=== PATIENT | female | born 1945 | race African-American/Black ===

== ENCOUNTER 2020-06-07 15:55 | Emergency (ER) | payer MEDICARE ==
[2020-06-07 16:32] LABS: #Lymphocytes 1.5 thou/uL (1.20-3.40); #Monocytes 0.3 thou/uL (0.11-0.59); #Neutrophils 2.8 thou/uL (1.40-6.50); %Basophils 0.1 % (0.0-1.0); %Eosinophils 0.4 % (0.0-10.0); %Lymphocytes 32.1 % (21.0-51.0); %Monocytes 6.2 % (0.0-10.0); %Neutrophils 61.2 % (42.0-75.0); Hemoglobin 9.4 g/dL (12.0-16.0); Mean Corpuscular HGB CONC 31.6 g/dL (32.0-36.0); Mean Corpuscular Hemoglobin 28.4 pg (27.0-31.0); Mean Corpuscular Volume 89.7 fL (78.0-98.0); Mean Platelet Volume 8.2 fL (7.4-10.4); Platelet Count 237 thou/uL (130-400); RBC Distribution Width 14.5 % (11.5-14.5); White Blood Cell (WBC) Count 4.6 thou/uL (4.8-10.8)
[2020-06-07 16:57] LABS: ALT (SGPT) 8 U/L (8-55); AST (SGOT) 27 U/L (5-34); Albumin 3.6 g/dL (3.4-4.8); Alkaline Phosphatase 44 U/L (40-110); Anion Gap 18 mmol/L (10-20); BUN (Urea Nitrogen) 35 mg/dL (9.8-20.1); Bilirubin, Total 0.5 mg/dL (0.2-1.2); Calc. Creatinine Clearance 0 mL/min (70-130); Calcium 8.4 mg/dL (7.8-10.44); Carbon Dioxide 24 mmol/L (23-31); Chloride 103 mmol/L (98-107); Globulin 3.5 g/dL (2.4-3.5); Glucose 110 mg/dL (83-110); Potassium 4.6 mmol/L (3.5-5.1); Protein, Total 7.1 g/dL (6.0-8.3); Sodium 140 mmol/L (136-145)
[2020-06-07] MEDS ORDERED: Cefepime 2 GM in Sodium Chloride 0.9% 100 ML IVPB SCH (17:45)
[2020-06-07] MEDS ORDERED: Vancomycin 1 GM in Premix Bag 1 BAG IVPB SCH (17:45)
[2020-06-07] MEDS ORDERED: Cefepime 2 GM VIAL ONE (18:12)
[2020-06-07 18:19] LABS: Bacteria/HPF None Seen HPF (None Seen); Bilirubin Negative (Negative); Blood, Urine Negative (Negative); Clarity Clear (Clear); Glucose, Urine (Dipstick) Normal (Negative); Ketone, Urine Negative (Negative); Leukocyte Negative Leu/uL (Negative); Nitrite Negative (Negative); Protein, Urine (Dipstick) 30 mg/dL (Neg-Trace); RBC/HPF 0-3 HPF (0-3); Specific Gravity, Urine 1.015 (1.002-1.036); Squamous Epithelial 0-3 HPF (0-3); Urobilinogen Normal mg/dL (Less than 2); WBC/HPF 0-3 HPF (0-3); pH, Urine 5.5 (5.0-9.0)
--- NOTE | 2020-06-07 18:21 | RAD ---
PORTABLE CHEST: History: Fever, dyspnea Comparison: 08-16-17 FINDINGS: Heart size is within normal limits. Lungs show some chronic change. Only questionable area of infiltr ative change would be in the right upper lobe where ground glass infiltrative changes would be diffic ult to exclude, but this may just be more chronic in nature. Technique difference between the previou s film is fairly significant. I would favor that this probably chronic in nature. IMPRESSION: Chronic lung changes as discussed above. POS: OFF
[2020-06-07 18:36] LABS: SARS-CoV-2 NAA Rapid Test DETECTED (NotDetected)
--- NOTE | 2020-06-26 19:13 | EKG ---
Test Reason : Blood Pressure : / mmHG Vent. Rate : 086 BPM Atrial Rate : 086 BPM P-R Int : 108 ms QRS Dur : 074 ms QT Int : 340 ms P-R-T Axes : 000 032 074 degrees QTc Int : 406 ms Normal sinus rhythm Normal ECG Confirmed by LORENZA PICHARDO DO ([id number]), electronic news gathering editor MALENA HAILE ([id number]) on 06/26/2020 7:12:32 PM Referred By: Confirmed By:LORENZA PICHARDO DO
== END 2020-06-07 19:45 | disposition home or self-care (01) ==
LOC: ERS 15:55
DX: U07.1 COVID-19 (principal); E11.9 Type 2 diabetes mellitus without complications; I10 Essential (primary) hypertension; F17.210 Nicotine dependence, cigarettes, uncomplicated; Z79.84 Long term (current) use of oral hypoglycemic drugs; Z79.899 Other long term (current) drug therapy
CPT/HCPCS: 0240U; 71045; 80053; 82550; 82962; 83605; 84484; 85025; 87040; 87086; 93005; 94760; 36415; 36416; 51701; 81003; 81015; 96365; J0692

== ENCOUNTER 2020-07-15 20:37 | Emergency (ER) | payer MEDICARE ==
--- NOTE | 2020-07-15 21:52 | RAD ---
Chest AP view INDICATION: History of fall COMPARISON: June 07, 2020 FINDINGS: Lungs: Interstitial fibrotic change and mild hyperinflation is stable. No contusion is evident. Cardiac silhouette: The cardiomediastinal silhouette appears within normal limits. Pulmonary vasculature: Normal Pleural spaces: No pleural effusion or pneumothorax is demonstrated. Upper abdomen: No abnormality seen. Osseous structures: There is diffuse osteopenia. No definite acute osseous abnormality is evident. Additional findings: None. IMPRESSION: No acute cardiopulmonary abnormality.
--- NOTE | 2020-07-15 21:53 | RAD ---
AP view of the pelvis INDICATION: Fall COMPARISON: None. FINDINGS: Bones: There is diffuse osteopenia. No displaced fracture is evident. Hips: Mild degenerative changes seen involving both hip joints. SI joints and symphysis pubis: Mild degenerative change. Intrapelvic contents: There is a calcified fibroid within the lower central pelvis. There are moderate vascular calcifications seen involving the visualized vasculature. IMPRESSION: No acute osseous abnormality.
[2020-07-15 22:09] LABS: Hemoglobin 9.7 g/dL (12.0-16.0); Mean Corpuscular HGB CONC 32.7 g/dL (32.0-36.0); Mean Corpuscular Hemoglobin 30.3 pg (27.0-31.0); Mean Corpuscular Volume 92.7 fL (78.0-98.0); Mean Platelet Volume 7.1 fL (7.4-10.4); Platelet Count 273 thou/uL (130-400); RBC Distribution Width 13.6 % (11.5-14.5); White Blood Cell (WBC) Count 6.1 thou/uL (4.8-10.8)
--- NOTE | 2020-07-15 22:10 | CT ---
CT Brain WO Con: 07/15/2020 9:55 PM CLINICAL HISTORY: Fall. IMAGING TECHNIQUE: Multiple CT images were obtained of the brain without IV contrast. COMPARISON: CT of the head dated August 16, 2017 FINDINGS: BRAIN: Evidence of acute infarct: None. 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 Evidence of intracranial hemorrhage: None. Evidence of brain volume loss:There is moderate generalized cerebral and cerebellar atrophy. Evidence of midline shift: Third ventricle and septum pellucidum are midline. Ventricles: Normal. No hydrocephalus. SKULL: Intact. VISUALIZED PARANASAL SINUSES: Clear. MASTOID AIR CELLS: Clear. EXTRACRANIAL SOFT TISSUES: Normal. IMPRESSION: No acute intracranial abnormality.
--- NOTE | 2020-07-15 22:12 | CT ---
CT Cervical Spine WO Con Indication: Fall with cervical injury COMPARISON: None. FINDINGS: Spinal alignment: No acute malalignment. Craniocervical junction: Within normal limits. Fracture: None. Vertebral body heights: Maintained. Prevertebral soft tissues:Normal appearing. Cervical spine degenerative change: Moderate multilevel cervical spondylosis. Lung apices: Severe emphysema IMPRESSION: No acute osseous abnormality.
[2020-07-15 22:21] LABS: ALT (SGPT) 9 U/L (8-55); AST (SGOT) 16 U/L (5-34); Albumin 3.4 g/dL (3.4-4.8); Alkaline Phosphatase 65 U/L (40-110); Anion Gap 20 mmol/L (10-20); BUN (Urea Nitrogen) 26 mg/dL (9.8-20.1); Bilirubin, Total 0.3 mg/dL (0.2-1.2); Calc. Creatinine Clearance 0 mL/min (70-130); Calcium 7.6 mg/dL (7.8-10.44); Carbon Dioxide 22 mmol/L (23-31); Chloride 100 mmol/L (98-107); Globulin 2.7 g/dL (2.4-3.5); Glucose 114 mg/dL (83-110); Potassium 4.9 mmol/L (3.5-5.1); Protein, Total 6.1 g/dL (5.8-8.1); Sodium 137 mmol/L (136-145)
[2020-07-15 22:22] LABS: #Lymphocytes 0.9 thou/uL (1.20-3.40); #Monocytes 0.4 thou/uL (0.11-0.59); #Neutrophils 4.8 thou/uL (1.40-6.50); %Basophils 0.5 % (0.0-1.0); %Eosinophils 0.2 % (0.0-10.0); %Lymphocytes 14.9 % (21.0-51.0); %Monocytes 6.3 % (0.0-10.0); %Neutrophils 78.1 % (42.0-75.0)
== END 2020-07-15 23:14 | disposition home or self-care (01) ==
LOC: ERS 20:37
DX: S01.81XA Laceration without foreign body of other part of head, initial encounter (principal); D64.9 Anemia, unspecified; I12.9 Hypertensive chronic kidney disease with stage 1 through stage 4 chronic kidney disease, or unspecified chronic kidney disease; E11.22 Type 2 diabetes mellitus with diabetic chronic kidney disease; N18.9 Chronic kidney disease, unspecified; F17.210 Nicotine dependence, cigarettes, uncomplicated; Z79.899 Other long term (current) drug therapy; W18.30XA Fall on same level, unspecified, initial encounter
CPT/HCPCS: 36415; 70450; 71045; 72125; 72170; 80053; 84484; 85025; 93005

== ENCOUNTER 2020-09-24 09:08 | Emergency (ER) | payer MEDICARE ==
[2020-09-24 11:17] LABS: #Basophils 0.1 thou/uL (0.0-0.2); #Monocytes 0.4 thou/uL (0.11-0.59); #Neutrophils 3.1 thou/uL (1.40-6.50); %Basophils 1.1 % (0.0-1.0); %Eosinophils 0.2 % (0.0-10.0); %Lymphocytes 35.5 % (21.0-51.0); %Monocytes 7.9 % (0.0-10.0); %Neutrophils 55.2 % (42.0-75.0); Hemoglobin 9.8 g/dL (12.0-16.0); Mean Corpuscular HGB CONC 30.2 g/dL (32.0-36.0); Mean Corpuscular Hemoglobin 28.8 pg (27.0-31.0); Mean Corpuscular Volume 95.3 fL (78.0-98.0); Mean Platelet Volume 7.3 fL (7.4-10.4); Platelet Count 304 thou/uL (130-400); RBC Distribution Width 12.8 % (11.5-14.5); Red Blood Cell (RBC) Count 3.41 mill/uL (4.20-5.40); White Blood Cell (WBC) Count 5.6 thou/uL (4.8-10.8)
[2020-09-24 11:36] LABS: ALT (SGPT) 8 U/L (8-55); AST (SGOT) 15 U/L (5-34); Albumin 3.5 g/dL (3.4-4.8); Alkaline Phosphatase 64 U/L (40-110); Anion Gap 13 mmol/L (10-20); BUN (Urea Nitrogen) 15 mg/dL (9.8-20.1); Bilirubin, Total 0.2 mg/dL (0.2-1.2); Calc. Creatinine Clearance 0 mL/min (70-130); Calcium 8.9 mg/dL (7.8-10.44); Carbon Dioxide 25 mmol/L (23-31); Chloride 103 mmol/L (98-107); Globulin 2.8 g/dL (2.4-3.5); Glucose 96 mg/dL (83-110); Lipase 20 U/L (8-78); Potassium 4.5 mmol/L (3.5-5.1); Protein, Total 6.3 g/dL (5.8-8.1); Sodium 136 mmol/L (136-145)
[2020-09-24] MEDS ORDERED: Iopamidol-370 76% 500 ML 1 ML ONE (11:52)
[2020-09-24] MEDS ORDERED: Fentanyl 100 MCG/2 ML VIAL ONE (15:34)
== END 2020-09-24 16:32 | disposition home or self-care (01) ==
LOC: ERS 09:08
DX: K52.89 Other specified noninfective gastroenteritis and colitis (principal); J98.4 Other disorders of lung; I10 Essential (primary) hypertension; F17.210 Nicotine dependence, cigarettes, uncomplicated; Z79.899 Other long term (current) drug therapy
CPT/HCPCS: 36415; 74177; 80053; 83605; 83690; 84484; 85025; 93005; 96374; J3010; Q9967

== ENCOUNTER 2020-10-07 09:44 | Inpatient (IN) | payer MEDICARE ==
[2020-10-07 10:30] LABS: #Lymphocytes 1.4 thou/uL (1.20-3.40); #Monocytes 0.5 thou/uL (0.11-0.59); #Neutrophils 3.6 thou/uL (1.40-6.50); %Basophils 0.2 % (0.0-1.0); %Eosinophils 0.2 % (0.0-10.0); %Lymphocytes 25.5 % (21.0-51.0); %Monocytes 9.3 % (0.0-10.0); %Neutrophils 64.9 % (42.0-75.0); Mean Corpuscular HGB CONC 31.6 g/dL (32.0-36.0); Mean Corpuscular Hemoglobin 29.9 pg (27.0-31.0); Mean Corpuscular Volume 94.5 fL (78.0-98.0); Mean Platelet Volume 7.4 fL (7.4-10.4); Platelet Count 280 thou/uL (130-400); RBC Distribution Width 12.4 % (11.5-14.5); Red Blood Cell (RBC) Count 3.36 mill/uL (4.20-5.40); White Blood Cell (WBC) Count 5.6 thou/uL (4.8-10.8)
[2020-10-07 10:43] LABS: ALT (SGPT) Less than 7 U/L (8-55); AST (SGOT) 12 U/L (5-34); Albumin 3.2 g/dL (3.4-4.8); Alkaline Phosphatase 61 U/L (40-110); Anion Gap 12 mmol/L (10-20); BUN (Urea Nitrogen) 11 mg/dL (9.8-20.1); Bilirubin, Total 0.4 mg/dL (0.2-1.2); Calc. Creatinine Clearance 0 mL/min (70-130); Calcium 8.6 mg/dL (7.8-10.44); Carbon Dioxide 28 mmol/L (23-31); Chloride 102 mmol/L (98-107); Globulin 2.6 g/dL (2.4-3.5); Glucose 115 mg/dL (83-110); Lipase 24 U/L (8-78); Potassium 4.2 mmol/L (3.5-5.1); Protein, Total 5.8 g/dL (5.8-8.1); Sodium 138 mmol/L (136-145)
[2020-10-07] MEDS ORDERED: Pantoprazole 40 MG VIAL ONE (12:32)
[2020-10-07] MEDS ORDERED: Ondansetron PF 4 MG/2 ML Vial ONE (12:32)
[2020-10-07] MEDS ORDERED: hydrALAZINE 20 MG/ML VIAL ONE (14:47)
[2020-10-07] MEDS ORDERED: HYDROcodone/Acetaminophen 5/325 mg Tablet PO PRN (14:59)
[2020-10-07] MEDS ORDERED: Acetaminophen 650 MG Suppository PR PRN (14:59)
[2020-10-07] MEDS ORDERED: Acetaminophen 325 MG TAB PO PRN (14:59)
[2020-10-07] MEDS ORDERED: Ondansetron PF 4 MG/2 ML Vial IVP PRN (14:59)
[2020-10-07] MEDS ORDERED: Amlodipine 5 MG TAB PO SCH (16:00)
[2020-10-07 16:40] VITALS: BMI 16.5
[2020-10-07] MEDS: Heparin 5,000 UNITS/ML VIAL SC SCH (20:35)
[2020-10-07] MEDS: hydrALAZINE 20 MG/ML VIAL SLOW IVP PRN (22:15)
[2020-10-07] MEDS: Dextrose 5% in Water 1,000 ML IV SCH (22:15)
[2020-10-08] MEDS: hydrALAZINE 20 MG/ML VIAL SLOW IVP PRN (05:59)
[2020-10-08 06:56] LABS: ALT (SGPT) Less than 7 U/L (8-55); AST (SGOT) 9 U/L (5-34); Albumin 2.6 g/dL (3.4-4.8); Alkaline Phosphatase 48 U/L (40-110); Anion Gap 9 mmol/L (10-20); BUN (Urea Nitrogen) 13 mg/dL (9.8-20.1); Bilirubin, Total 0.4 mg/dL (0.2-1.2); Calc. Creatinine Clearance 27 mL/min (70-130); Calcium 7.9 mg/dL (7.8-10.44); Carbon Dioxide 28 mmol/L (23-31); Globulin 2.2 g/dL (2.4-3.5); Glucose 90 mg/dL (83-110); Protein, Total 4.8 g/dL (5.8-8.1)
[2020-10-08 07:01] LABS: Chloride 103 mmol/L (98-107); Potassium 4.3 mmol/L (3.5-5.1); Sodium 136 mmol/L (136-145)
[2020-10-08] MEDS: Amlodipine 5 MG TAB PO SCH (09:43)
[2020-10-08] MEDS: Heparin 5,000 UNITS/ML VIAL SC SCH ×2 (10:37→20:14)
[2020-10-08] MEDS: Dextrose 5% in Water 1,000 ML IV SCH (10:47)
[2020-10-08] MEDS ORDERED: Amlodipine 10 MG TAB PO SCH (20:00)
[2020-10-08] MEDS: Oxybutynin 5 MG TAB PO SCH (20:15)
[2020-10-08] MEDS: Docusate 100 MG CAP PO SCH (20:15)
[2020-10-08] MEDS ORDERED: Mirtazapine 15 MG Soltab PO SCH (21:00)
[2020-10-09] MEDS ORDERED: Folic Acid 1 MG TAB PO SCH (09:00)
[2020-10-09] MEDS: Docusate 100 MG CAP PO SCH (09:11)
[2020-10-09] MEDS: Amlodipine 5 MG TAB PO SCH (09:11)
[2020-10-09] MEDS: Heparin 5,000 UNITS/ML VIAL SC SCH (09:12)
[2020-10-09] MEDS: Oxybutynin 5 MG TAB PO SCH (09:12)
[2020-10-09 14:43] VITALS: BP 158/74; TEMP 97.7
== END 2020-10-09 14:38 | disposition home or self-care (01) | DRG 389 ==
LOC: ERS 09:44 → T4-B 14:09 → OBSVTOIN 10-08 18:10
PROVIDERS: ADMIT Hospitalist; ATTEND Internal Medicine
DX: K56.600 Partial intestinal obstruction, unspecified as to cause (principal); N17.9 Acute kidney failure, unspecified; E44.0 Moderate protein-calorie malnutrition; R64 Cachexia; Z68.1 Body mass index [BMI] 19.9 or less, adult; F03.90 Unspecified dementia, unspecified severity, without behavioral disturbance, psychotic disturbance, mood disturbance, and anxiety; D50.9 Iron deficiency anemia, unspecified; E11.22 Type 2 diabetes mellitus with diabetic chronic kidney disease; I12.9 Hypertensive chronic kidney disease with stage 1 through stage 4 chronic kidney disease, or unspecified chronic kidney disease; N18.30 Chronic kidney disease, stage 3 unspecified; I16.0 Hypertensive urgency; F17.210 Nicotine dependence, cigarettes, uncomplicated; Z86.16 Personal history of COVID-19
CPT/HCPCS: 36415; 36416; 74018; 74177; 80053; 83690; 84484; 85025; 93005; 96372; 96374; 96375; 96376; C9113; G0378; J0360; J1644; J2405

== ENCOUNTER 2020-12-20 17:59 | Inpatient (IN) | payer MEDICARE ==
[~2020-12-20 17:59] MED LIST: Iopamidol-370 76% 500 ML 1 ML ONE
[2020-12-20 21:52] LABS: #Eosinphils 0.1 thou/uL (0.0-0.7); #Monocytes 0.6 thou/uL (0.11-0.59); #Neutrophils 3.6 thou/uL (1.40-6.50); %Basophils 0.2 % (0.0-1.0); %Eosinophils 1.8 % (0.0-10.0); %Monocytes 9.7 % (0.0-10.0); %Neutrophils 56.3 % (42.0-75.0); Hemoglobin 5.3 g/dL (12.0-16.0); Mean Corpuscular HGB CONC 31.2 g/dL (32.0-36.0); Mean Corpuscular Hemoglobin 26.1 pg (27.0-31.0); Mean Corpuscular Volume 83.7 fL (78.0-98.0); Mean Platelet Volume 6.8 fL (7.4-10.4); Platelet Count 384 thou/uL (130-400); RBC Distribution Width 15.3 % (11.5-14.5); Red Blood Cell (RBC) Count 2.03 mill/uL (4.20-5.40); White Blood Cell (WBC) Count 6.4 thou/uL (4.8-10.8)
[2020-12-20 21:58] LABS: ALT (SGPT) Less than 7 U/L (8-55); AST (SGOT) 11 U/L (5-34); Albumin 3.8 g/dL (3.4-4.8); Alkaline Phosphatase 57 U/L (40-110); Anion Gap 12 mmol/L (10-20); BUN (Urea Nitrogen) 22 mg/dL (9.8-20.1); Bilirubin, Total Less than 0.2 mg/dL (0.2-1.2); Calc. Creatinine Clearance 0 mL/min (70-130); Calcium 8.8 mg/dL (7.8-10.44); Carbon Dioxide 24 mmol/L (23-31); Chloride 107 mmol/L (98-107); Globulin 2.8 g/dL (2.4-3.5); Glucose 108 mg/dL (83-110); Lipase 82 U/L (8-78); Protein, Total 6.6 g/dL (5.8-8.1); Sodium 138 mmol/L (136-145)
[2020-12-20] MEDS ORDERED: Piperacillin/Tazobactam 3.375 GM VIAL ONE (22:49)
[2020-12-20] MEDS ORDERED: Pantoprazole 80 MG, Admixture Fee 1 EACH in Sodium Chloride 0.9% 100 ML IVPB SCH (23:00)
[2020-12-20 23:13] LABS: Bilirubin Negative (Negative); Blood, Urine Negative (Negative); Clarity Clear (Clear); Glucose, Urine (Dipstick) Normal (Negative); Ketone, Urine Negative (Negative); Leukocyte Negative Leu/uL (Negative); Nitrite Negative (Negative); Protein, Urine (Dipstick) Negative (Neg-Trace); Specific Gravity, Urine 1.014 (1.002-1.036); Urobilinogen Normal mg/dL (Less than 2)
[2020-12-21] MEDS ORDERED: Sodium Chloride 0.9% 1,000 ML IV SCH (02:15)
[2020-12-21] MEDS ORDERED: Ondansetron PF 4 MG/2 ML Vial IVP PRN (02:15)
[2020-12-21] MEDS ORDERED: Ondansetron ODT 4 MG TAB SL PRN (02:15)
[2020-12-21 02:18] VITALS: BMI 19.1
[2020-12-21] MEDS ORDERED: Acetaminophen 650 MG Suppository PR PRN (02:46)
[2020-12-21] MEDS: metroNIDAZOLE 500 MG in Premix Bag 1 BAG IVPB SCH ×3 (03:11→20:56)
[2020-12-21 04:39] LABS: #Eosinphils 0.1 thou/uL (0.0-0.7); #Lymphocytes 1.8 thou/uL (1.20-3.40); #Monocytes 0.7 thou/uL (0.11-0.59); #Neutrophils 4.1 thou/uL (1.40-6.50); %Basophils 0.6 % (0.0-1.0); %Eosinophils 0.9 % (0.0-10.0); %Lymphocytes 27.2 % (21.0-51.0); %Monocytes 9.9 % (0.0-10.0); %Neutrophils 61.4 % (42.0-75.0); Hemoglobin 6.7 g/dL (12.0-16.0); Mean Corpuscular HGB CONC 32.7 g/dL (32.0-36.0); Mean Corpuscular Hemoglobin 28.6 pg (27.0-31.0); Mean Corpuscular Volume 87.5 fL (78.0-98.0); Mean Platelet Volume 6.6 fL (7.4-10.4); Platelet Count 332 thou/uL (130-400); RBC Distribution Width 15.4 % (11.5-14.5); Red Blood Cell (RBC) Count 2.34 mill/uL (4.20-5.40); White Blood Cell (WBC) Count 6.6 thou/uL (4.8-10.8)
[2020-12-21 04:50] LABS: Anion Gap 12 mmol/L (10-20); BUN (Urea Nitrogen) 21 mg/dL (9.8-20.1); Calc. Creatinine Clearance 25 mL/min (70-130); Calcium 8.7 mg/dL (7.8-10.44); Carbon Dioxide 21 mmol/L (23-31); Chloride 107 mmol/L (98-107); Glucose 95 mg/dL (83-110); Potassium 4.6 mmol/L (3.5-5.1); Sodium 135 mmol/L (136-145)
[2020-12-21] MEDS ORDERED: Piperacillin/Tazobactam 3.375 GM in Sodium Chloride 0.9% 100 ML IVPB SCH (06:00)
[2020-12-21 06:18] LABS: SARS-CoV-2 NAA Rapid Test Not Detected (NotDetected)
[2020-12-21] MEDS: Pantoprazole 40 MG VIAL IVP SCH ×2 (08:31→20:57)
[2020-12-21] MEDS: Oxybutynin 5 MG TAB PO SCH ×2 (08:40→20:57)
[2020-12-21] MEDS: Folic Acid 1 MG TAB PO SCH (08:40)
[2020-12-21 09:47] LABS: Hemoglobin 8.5 g/dL (12.0-16.0)
[2020-12-21] MEDS ORDERED: Dextrose 50% Abboject 50 ML SYRINGE SLOW IVP PRN (13:13)
[2020-12-21] MEDS ORDERED: HumaLOG 300 UNITS/3 ML VIAL SC PRN (13:13)
[2020-12-21] MEDS ORDERED: Dextrose 5% in Water 1,000 ML IV PRN (13:13)
[2020-12-21] MEDS: Sodium Chloride 0.45% 1,000 ML IV SCH (14:55)
[2020-12-21 15:08] LABS: Hemoglobin 9.4 g/dL (12.0-16.0)
[2020-12-21] MEDS: Donepezil HCl 5 MG TAB PO SCH (20:56)
[2020-12-21] MEDS: Mirtazapine 15 MG Soltab PO SCH (21:01)
[2020-12-21 21:38] LABS: Hemoglobin 8.1 g/dL (12.0-16.0)
[2020-12-22] MEDS: metroNIDAZOLE 500 MG in Premix Bag 1 BAG IVPB SCH ×2 (03:52→12:13)
[2020-12-22 06:36] LABS: Anion Gap 10 mmol/L (10-20); BUN (Urea Nitrogen) 12 mg/dL (9.8-20.1); Calc. Creatinine Clearance 24 mL/min (70-130); Calcium 8.5 mg/dL (7.8-10.44); Carbon Dioxide 22 mmol/L (23-31); Chloride 107 mmol/L (98-107); Glucose 80 mg/dL (83-110); Potassium 4.4 mmol/L (3.5-5.1); Sodium 135 mmol/L (136-145)
[2020-12-22] MEDS: Folic Acid 1 MG TAB PO SCH (09:29)
[2020-12-22] MEDS: Pantoprazole 40 MG VIAL IVP SCH (09:29)
[2020-12-22] MEDS: Oxybutynin 5 MG TAB PO SCH ×2 (09:29→21:56)
[2020-12-22] MEDS: Sodium Chloride 0.45% 1,000 ML IV SCH (12:04)
[2020-12-22] MEDS: metroNIDAZOLE 500 MG TAB PO SCH ×2 (13:28→21:55)
[2020-12-22 17:14] LABS: Hemoglobin 8.1 g/dL (12.0-16.0)
[2020-12-22] MEDS: Acetaminophen 325 MG TAB PO PRN (17:32)
[2020-12-22] MEDS: Donepezil HCl 5 MG TAB PO SCH (21:55)
[2020-12-22] MEDS: Mirtazapine 15 MG Soltab PO SCH (21:55)
[2020-12-23] MEDS: metroNIDAZOLE 500 MG TAB PO SCH (07:55)
[2020-12-23] MEDS: Acetaminophen 325 MG TAB PO PRN (07:55)
[2020-12-23] MEDS: Oxybutynin 5 MG TAB PO SCH (07:56)
[2020-12-23] MEDS: Folic Acid 1 MG TAB PO SCH (07:57)
[2020-12-23 12:19] VITALS: BP 127/70; TEMP 97.2
== END 2020-12-23 12:37 | disposition home or self-care (01) | DRG 378 ==
LOC: ERS 17:59 → T4-B 12-21 00:10 → OBSVTOIN 12-21 07:27
PROVIDERS: ADMIT Student in an Organized Health Care Education/Training Program; ATTEND Internal Medicine
PROC: 30233N1 Transfusion of Nonautologous Red Blood Cells into Peripheral Vein, Percutaneous Approach (ICD-10-PCS; principal; 2020-12-21)
DX: K57.31 Diverticulosis of large intestine without perforation or abscess with bleeding (principal); D62 Acute posthemorrhagic anemia; N17.9 Acute kidney failure, unspecified; E11.22 Type 2 diabetes mellitus with diabetic chronic kidney disease; N18.9 Chronic kidney disease, unspecified; I12.9 Hypertensive chronic kidney disease with stage 1 through stage 4 chronic kidney disease, or unspecified chronic kidney disease; F03.90 Unspecified dementia, unspecified severity, without behavioral disturbance, psychotic disturbance, mood disturbance, and anxiety; Z20.822 Contact with and (suspected) exposure to COVID-19; Z79.899 Other long term (current) drug therapy; Z87.891 Personal history of nicotine dependence; Z93.1 Gastrostomy status; Z85.118 Personal history of other malignant neoplasm of bronchus and lung
CPT/HCPCS: 36415; 36416; 36430; 51701; 74177; 80048; 80053; 81003; 82274; 83690; 85014; 85018; 85025; 86850; 86900; 86901; 87086; 96365; 96367; 96375; C9113; G0378; J1956; J2543; J3490; P9016; Q9967; U0002; U0005

== ENCOUNTER 2021-03-05 14:15 | Emergency (ER) | payer OTHER, MEDICARE ==
[2021-03-05] MEDS ORDERED: Morphine 4 MG/ML VIAL ONE ×2 (14:55→16:05)
== END 2021-03-05 17:08 | disposition home or self-care (01) ==
LOC: ERS 14:15
DX: K94.09 Other complications of colostomy (principal); I10 Essential (primary) hypertension; E11.9 Type 2 diabetes mellitus without complications; F03.90 Unspecified dementia, unspecified severity, without behavioral disturbance, psychotic disturbance, mood disturbance, and anxiety; Z79.899 Other long term (current) drug therapy
CPT/HCPCS: 96374; 96376; J2270

== ENCOUNTER 2021-03-06 16:14 | Emergency (ER) | payer OTHER, MEDICARE | END 2021-03-06 17:21 | disposition home or self-care (01) | LOC: ERS 16:14 | DX: K94.03 Colostomy malfunction (principal); Z79.899 Other long term (current) drug therapy; E11.9 Type 2 diabetes mellitus without complications; I10 Essential (primary) hypertension | CPT/HCPCS: 99283 ==

== ENCOUNTER 2021-03-07 16:55 | Outpatient (CLI) | payer OTHER ==
[2021-03-08 00:59] LABS: SARS-CoV-2 PCR by NAA Not Detected (NotDetected)
== END 2021-03-07 16:56 | disposition home or self-care (01) ==
LOC: LABBT 16:55
DX: Z01.812 Encounter for preprocedural laboratory examination (principal); Z20.822 Contact with and (suspected) exposure to COVID-19
CPT/HCPCS: U0003; U0005

== ENCOUNTER 2021-03-09 09:32 | Inpatient (IN) | payer MEDICARE ==
[2021-03-08 17:48] VITALS: BMI 14.8
[2021-03-09] MEDS ORDERED: Midazolam HCl 2 mg/2 ml Vial ONE (10:33)
[2021-03-09] MEDS ORDERED: Ondansetron PF 4 MG/2 ML Vial ONE (10:44)
[2021-03-09] MEDS ORDERED: Succinylcholine 200 MG/10 ml SYRINGE FS ONE (10:44)
[2021-03-09] MEDS ORDERED: PROPOFOL 200 MG/20 ML VIAL ONE (10:44)
[2021-03-09] MEDS ORDERED: Esmolol 100 MG/10 ML VIAL ONE (10:44)
[2021-03-09] MEDS ORDERED: Lidocaine 1% PF 5 ML VIAL ONE (10:44)
[2021-03-09] MEDS ORDERED: PHENYLEPHRINE-NS 100 MCG/ML 10 ML SYRINGE ONE (10:44)
[2021-03-09] MEDS ORDERED: Dexamethasone 20 MG/5 ML VIAL ONE (10:44)
[2021-03-09] MEDS ORDERED: Fentanyl 100 MCG/2 ML VIAL ONE ×3 (10:55→13:36)
[2021-03-09] MEDS ORDERED: cefOXitin Sodium/Dextrose 2 GM/50 ML BAG ONE (11:49)
[2021-03-09] MEDS ORDERED: Dextrose 50% Abboject 50 ML SYRINGE SLOW IVP PRN (13:02)
[2021-03-09] MEDS ORDERED: Dextrose 5% in Water 1,000 ML IV PRN (13:02)
[2021-03-09] MEDS ORDERED: Morphine 4 MG/ML VIAL SLOW IVP PRN ×2 (13:02→13:06)
[2021-03-09] MEDS ORDERED: HYDROcodone/Acetaminophen 7.5/325 mg Tablet PO PRN (13:02)
[2021-03-09] MEDS ORDERED: Ondansetron PF 4 MG/2 ML Vial IVP PRN (13:02)
[2021-03-09] MEDS ORDERED: hydrALAZINE 20 MG/ML VIAL SLOW IVP PRN (13:02)
[2021-03-09] MEDS ORDERED: Sodium Chloride 0.9% 1,000 ML IV SCH (13:02)
[2021-03-09] MEDS ORDERED: Promethazine HCl 25 MG/ML VIAL IM PRN (13:02)
[2021-03-09] MEDS ORDERED: traMADol HCl 50 MG TAB PO PRN (13:02)
[2021-03-09 13:14] LABS: #Lymphocytes 2.9 thou/uL (1.20-3.40); #Monocytes 0.6 thou/uL (0.11-0.59); #Neutrophils 4.4 thou/uL (1.40-6.50); %Basophils 0.1 % (0.0-1.0); %Eosinophils 0.5 % (0.0-10.0); %Lymphocytes 36.7 % (21.0-51.0); %Monocytes 7.5 % (0.0-10.0); %Neutrophils 55.1 % (42.0-75.0); Hemoglobin 10.3 g/dL (12.0-16.0); Mean Corpuscular HGB CONC 32.2 g/dL (32.0-36.0); Mean Corpuscular Hemoglobin 26.3 pg (27.0-31.0); Mean Corpuscular Volume 81.9 fL (78.0-98.0); Mean Platelet Volume 8.7 fL (7.4-10.4); Platelet Count 287 thou/uL (130-400); RBC Distribution Width 19.7 % (11.5-14.5); Red Blood Cell (RBC) Count 3.92 mill/uL (4.20-5.40)
[2021-03-09] MEDS ORDERED: Ondansetron HCl/PF 4 MG/2 ML Vial IVP PRN (13:20)
[2021-03-09 13:38] LABS: Anion Gap 15 mmol/L (10-20); BUN (Urea Nitrogen) 17 mg/dL (9.8-20.1); Calc. Creatinine Clearance 14 mL/min (70-130); Calcium 8.1 mg/dL (7.8-10.44); Carbon Dioxide 15 mmol/L (23-31); Chloride 104 mmol/L (98-107); Glucose 160 mg/dL (83-110); Potassium 5.7 mmol/L (3.5-5.1); Sodium 128 mmol/L (136-145)
[2021-03-09 13:55] LABS: Vitamin D, 25 Hydroxy 8.9 ng/ml (> 30.0)
[2021-03-09 14:01] LABS: Thyroid Stimulating Hormone 2.3141 uIU/mL (0.35-4.94)
[2021-03-09] MEDS: Sodium Chloride 0.9% 1,000 ML IV SCH (19:02)
[2021-03-09] MEDS ORDERED: Donepezil HCl 5 MG TAB PO SCH (21:00)
[2021-03-09] MEDS ORDERED: Mirtazapine 15 MG Soltab PO SCH (21:00)
[2021-03-09] MEDS: Famotidine 20 MG TAB PO SCH (21:06)
[2021-03-09] MEDS: Oxybutynin 5 MG TAB PO SCH (21:06)
[2021-03-09] MEDS: Famotidine/PF 20 mg/2ml Vial SLOW IVP SCH (21:07)
[2021-03-10] MEDS: Sodium Chloride 0.9% 1,000 ML IV SCH (02:07)
[2021-03-10 06:39] LABS: Anion Gap 14 mmol/L (10-20); BUN (Urea Nitrogen) 15 mg/dL (9.8-20.1); Calc. Creatinine Clearance 26 mL/min (70-130); Calcium 8.1 mg/dL (7.8-10.44); Carbon Dioxide 14 mmol/L (23-31); Chloride 109 mmol/L (98-107); Glucose 110 mg/dL (83-110); Potassium 5.1 mmol/L (3.5-5.1); Sodium 132 mmol/L (136-145)
[2021-03-10 08:03] VITALS: BP 112/67; TEMP 97.9
[2021-03-10] MEDS: Famotidine 20 MG TAB PO SCH (08:31)
[2021-03-10] MEDS: Oxybutynin 5 MG TAB PO SCH (08:32)
[2021-03-10] MEDS: Famotidine/PF 20 mg/2ml Vial SLOW IVP SCH (08:34)
[2021-03-10] MEDS ORDERED: Folic Acid 1 MG TAB PO SCH (09:00)
[2021-03-10] MEDS ORDERED: Amlodipine 10 MG TAB PO SCH (09:00)
== END 2021-03-10 11:29 | disposition home or self-care (01) | DRG 331 ==
LOC: SDC 09:32 → SURG A 12:57 → EDSTATUS 18:15
PROVIDERS: ADMIT Surgery; ATTEND Surgery
PROC: 0DW807Z Revision of Autologous Tissue Substitute in Small Intestine, Open Approach (ICD-10-PCS; principal; 2021-03-09)
DX: K94.19 Other complications of enterostomy (principal); Y83.3 Surgical operation with formation of external stoma as the cause of abnormal reaction of the patient, or of later complication, without mention of misadventure at the time of the procedure; I10 Essential (primary) hypertension; G40.909 Epilepsy, unspecified, not intractable, without status epilepticus; E11.9 Type 2 diabetes mellitus without complications; F32.A Depression, unspecified; F41.9 Anxiety disorder, unspecified; F20.9 Schizophrenia, unspecified; F03.90 Unspecified dementia, unspecified severity, without behavioral disturbance, psychotic disturbance, mood disturbance, and anxiety; Z79.899 Other long term (current) drug therapy; Z87.891 Personal history of nicotine dependence
CPT/HCPCS: 36415; 36416; 80048; 82306; 82607; 82746; 84207; 84425; 84439; 84443; 85025; 99283; J0694; J1100; J2250; J2405; J2704; J3010; J7050; U0003; U0005

== ENCOUNTER 2021-03-15 06:51 | Inpatient (IN) | payer MEDICARE ==
[2021-03-15 07:33] LABS: #Basophils 0.1 thou/uL (0.0-0.2); #Eosinphils 0.2 thou/uL (0.0-0.7); #Lymphocytes 2.5 thou/uL (1.20-3.40); #Neutrophils 5.6 thou/uL (1.40-6.50); %Eosinophils 1.6 % (0.0-10.0); %Lymphocytes 26.8 % (21.0-51.0); %Monocytes 10.4 % (0.0-10.0); %Neutrophils 60.2 % (42.0-75.0); Hemoglobin 10.4 g/dL (12.0-16.0); Mean Corpuscular HGB CONC 30.9 g/dL (32.0-36.0); Mean Corpuscular Hemoglobin 25.3 pg (27.0-31.0); Mean Platelet Volume 8.5 fL (7.4-10.4); Platelet Count 289 thou/uL (130-400); RBC Distribution Width 20.1 % (11.5-14.5); Red Blood Cell (RBC) Count 4.09 mill/uL (4.20-5.40); White Blood Cell (WBC) Count 9.3 thou/uL (4.8-10.8)
[2021-03-15 07:52] LABS: ALT (SGPT) 11 U/L (8-55); AST (SGOT) 30 U/L (5-34); Albumin 3.7 g/dL (3.4-4.8); Alkaline Phosphatase 64 U/L (40-110); Anion Gap 16 mmol/L (10-20); BUN (Urea Nitrogen) 15 mg/dL (9.8-20.1); Bilirubin, Total 0.3 mg/dL (0.2-1.2); CK (CPK) 98 U/L (29-168); Calc. Creatinine Clearance 0 mL/min (70-130); Calcium 9.2 mg/dL (7.8-10.44); Carbon Dioxide 15 mmol/L (23-31); Chloride 107 mmol/L (98-107); Globulin 2.8 g/dL (2.4-3.5); Glucose 113 mg/dL (83-110); Potassium 5.3 mmol/L (3.5-5.1); Protein, Total 6.5 g/dL (5.8-8.1); Sodium 133 mmol/L (136-145)
[2021-03-15] MEDS ORDERED: Aspirin 325 MG TAB ONE (08:17)
[2021-03-15 08:27] LABS: CKMB 12.2 ng/mL (0-6.6)
[2021-03-15] MEDS ORDERED: Iopamidol-370 76% 500 ML 1 ML ONE (09:36)
[2021-03-15] MEDS ORDERED: Acetaminophen 650 MG Suppository PR PRN (09:58)
[2021-03-15] MEDS ORDERED: Ondansetron PF 4 MG/2 ML Vial IVP PRN (09:58)
[2021-03-15] MEDS ORDERED: Senokot S 8.6-50 MG TAB PO PRN (09:58)
[2021-03-15] MEDS ORDERED: Bisacodyl 5 MG TAB PO PRN (09:58)
[2021-03-15] MEDS ORDERED: Acetaminophen 325 MG TAB PO PRN (09:58)
[2021-03-15 11:18] LABS: Magnesium 1.5 mg/dL (1.6-2.6); Phosphorus 3.8 mg/dL (2.3-4.7)
[2021-03-15 11:27] LABS: Troponin I 0.455 ng/mL (< 0.028)
[2021-03-15 12:27] LABS: Actual Bicarbonate (HCO3v) 18 mEq/L (22-28); Analyzer IN Cardio ER; Base Excess -7.9 mEq/L (-2.0 to +3.0); Calcium, Ionized (venous) 1.21 mmol/L (1.16-1.32); Chloride (VBG) 104 mmol/L (98-106); Hemoglobin (Hb) 9.9 g/dL (11.7-16.1); Potassium (VBG) 5.25 mmol/L (3.70-5.30); Sodium 132.2 mmol/L (133-146); pH (venous) 7.29 (7.32-7.43)
[2021-03-15] MEDS ORDERED: Aspirin 325 MG TAB PO SCH (12:45)
[2021-03-15 12:54] LABS: Anion Gap 20 mmol/L (10-20); BUN (Urea Nitrogen) 14 mg/dL (9.8-20.1); Calc. Creatinine Clearance 0 mL/min (70-130); Calcium 8.8 mg/dL (7.8-10.44); Carbon Dioxide 11 mmol/L (23-31); Chloride 108 mmol/L (98-107); Glucose 119 mg/dL (83-110); Potassium 5.3 mmol/L (3.5-5.1); Sodium 134 mmol/L (136-145)
[2021-03-15] MEDS ORDERED: Sodium Chloride 0.9% 1,000 ML IV SCH (14:15)
[2021-03-15] MEDS ORDERED: Calcium Gluconate 4.6 MEQ in Sodium Chloride 0.9% 100 ML IVPB SCH (14:30)
[2021-03-15] MEDS ORDERED: Dextrose 50% Abboject 50 ML SYRINGE SLOW IVP PRN (14:35)
[2021-03-15] MEDS ORDERED: Dextrose 5% in Water 1,000 ML IV PRN (14:35)
[2021-03-15] MEDS ORDERED: Insulin Regular 300 UNITS/3 ML VIAL SC SCH ×2 (14:45)
[2021-03-15] MEDS ORDERED: Dextrose 50% Abboject 50 ML SYRINGE SLOW IVP SCH (14:45)
[2021-03-15] MEDS ORDERED: Dextrose 5 % And 0.9 % NaCl 1,000 ML IV SCH (14:45)
[2021-03-15] MEDS ORDERED: Sodium Bicarbonate 150 MEQ in Dextrose 5% in Water 1,000 ML IV SCH (17:15)
[2021-03-15 18:16] LABS: Critical Call Chem Troponin I RESULT DECREASING
[2021-03-15 20:59] LABS: Anion Gap 18 mmol/L (10-20); BUN (Urea Nitrogen) 14 mg/dL (9.8-20.1); Calc. Creatinine Clearance 20 mL/min (70-130); Calcium 9.2 mg/dL (7.8-10.44); Carbon Dioxide 17 mmol/L (23-31); Chloride 108 mmol/L (98-107); Glucose 139 mg/dL (83-110); Potassium 4.8 mmol/L (3.5-5.1); Sodium 138 mmol/L (136-145)
[2021-03-15 21:18] LABS: CKMB 14.2 ng/mL (0-6.6)
[2021-03-16] MEDS ORDERED: Lorazepam 2 MG/ML VIAL SLOW IVP SCH (00:15)
[2021-03-16] MEDS ORDERED: FLU VACC QS2021-22(65YR UP)/PF 240 MCG/0.7 ML SYRINGE IM ONE (09:00)
[2021-03-16] MEDS ORDERED: Enoxaparin Sodium 40 MG/0.4 ML SYRINGE SC SCH (09:00)
[2021-03-16] MEDS: Enoxaparin Sodium 30 MG/0.3 ML SYRINGE SC SCH ×2 (09:20→09:29)
[2021-03-16] MEDS: Aspirin Chewable 81 MG TAB PO SCH (09:20)
[2021-03-16] MEDS ORDERED: Enoxaparin Sodium 30 MG/0.3 ML SYRINGE SC SCH ×2 (21:00)
[2021-03-16] MEDS: Oxybutynin 5 MG TAB PO SCH (21:01)
[2021-03-16] MEDS: Mirtazapine 15 MG Soltab PO SCH (21:01)
[2021-03-16] MEDS: Donepezil HCl 5 MG TAB PO SCH (21:02)
[2021-03-17] MEDS: Oxybutynin 5 MG TAB PO SCH ×2 (08:58→20:51)
[2021-03-17] MEDS: Aspirin Chewable 81 MG TAB PO SCH (08:58)
[2021-03-17] MEDS: Folic Acid 1 MG TAB PO SCH (08:58)
[2021-03-17 10:38] LABS: #Basophils 0.1 thou/uL (0.0-0.2); #Eosinphils 0.1 thou/uL (0.0-0.7); #Lymphocytes 2.4 thou/uL (1.20-3.40); #Monocytes 1.1 thou/uL (0.11-0.59); #Neutrophils 9.1 thou/uL (1.40-6.50); %Basophils 0.7 % (0.0-1.0); %Eosinophils 0.4 % (0.0-10.0); %Lymphocytes 18.8 % (21.0-51.0); %Monocytes 8.6 % (0.0-10.0); %Neutrophils 71.5 % (42.0-75.0); Mean Corpuscular HGB CONC 31.1 g/dL (32.0-36.0); Mean Corpuscular Hemoglobin 25.7 pg (27.0-31.0); Mean Corpuscular Volume 82.6 fL (78.0-98.0); Platelet Count 375 thou/uL (130-400); RBC Distribution Width 20.4 % (11.5-14.5); Red Blood Cell (RBC) Count 4.67 mill/uL (4.20-5.40); White Blood Cell (WBC) Count 12.7 thou/uL (4.8-10.8)
[2021-03-17 11:01] LABS: ALT (SGPT) 19 U/L (8-55); AST (SGOT) 51 U/L (5-34); Alkaline Phosphatase 69 U/L (40-110); Anion Gap 24 mmol/L (10-20); BUN (Urea Nitrogen) 31 mg/dL (9.8-20.1); Bilirubin, Total 0.2 mg/dL (0.2-1.2); Calc. Creatinine Clearance 8 mL/min (70-130); Calcium 9.4 mg/dL (7.8-10.44); Carbon Dioxide 15 mmol/L (23-31); Chloride 101 mmol/L (98-107); Globulin 3.8 g/dL (2.4-3.5); Glucose 183 mg/dL (83-110); Potassium 6.3 mmol/L (3.5-5.1); Protein, Total 7.8 g/dL (5.8-8.1); Sodium 134 mmol/L (136-145)
[2021-03-17] MEDS ORDERED: Sodium Bicarbonate 150 MEQ in Dextrose 5% in Water 1,000 ML IV SCH (11:15)
[2021-03-17] MEDS ORDERED: LOKELMA 10 GM PACKET PO SCH (11:15)
[2021-03-17] MEDS: Mirtazapine 15 MG Soltab PO SCH (20:51)
[2021-03-17] MEDS: Donepezil HCl 5 MG TAB PO SCH (20:51)
[2021-03-18] MEDS: Aspirin Chewable 81 MG TAB PO SCH (10:09)
[2021-03-18] MEDS: Folic Acid 1 MG TAB PO SCH (10:09)
[2021-03-18] MEDS: Oxybutynin 5 MG TAB PO SCH ×2 (10:09→22:22)
[2021-03-18] MEDS ORDERED: Sodium Bicarbonate 150 MEQ in Dextrose 5% in Water 1,000 ML IV SCH (11:15)
[2021-03-18 13:22] LABS: #Eosinphils 0.1 thou/uL (0.0-0.7); #Lymphocytes 1.8 thou/uL (1.20-3.40); #Monocytes 0.7 thou/uL (0.11-0.59); #Neutrophils 5.5 thou/uL (1.40-6.50); %Basophils 0.5 % (0.0-1.0); %Eosinophils 1.1 % (0.0-10.0); %Lymphocytes 22.4 % (21.0-51.0); %Monocytes 8.4 % (0.0-10.0); %Neutrophils 67.7 % (42.0-75.0); Hemoglobin 12.3 g/dL (12.0-16.0); Mean Corpuscular HGB CONC 32.2 g/dL (32.0-36.0); Mean Corpuscular Hemoglobin 26.2 pg (27.0-31.0); Mean Corpuscular Volume 81.6 fL (78.0-98.0); Mean Platelet Volume 8.8 fL (7.4-10.4); Platelet Count 385 thou/uL (130-400); Red Blood Cell (RBC) Count 4.69 mill/uL (4.20-5.40); White Blood Cell (WBC) Count 8.1 thou/uL (4.8-10.8)
[2021-03-18 13:43] LABS: ALT (SGPT) 22 U/L (8-55); AST (SGOT) 51 U/L (5-34); Albumin 4.1 g/dL (3.4-4.8); Alkaline Phosphatase 78 U/L (40-110); Anion Gap 24 mmol/L (10-20); BUN (Urea Nitrogen) 38 mg/dL (9.8-20.1); Bilirubin, Total 0.2 mg/dL (0.2-1.2); Calc. Creatinine Clearance 6 mL/min (70-130); Calcium 9.6 mg/dL (7.8-10.44); Carbon Dioxide 24 mmol/L (23-31); Chloride 94 mmol/L (98-107); Globulin 3.4 g/dL (2.4-3.5); Glucose 188 mg/dL (83-110); Potassium 5.8 mmol/L (3.5-5.1); Protein, Total 7.5 g/dL (5.8-8.1); Sodium 136 mmol/L (136-145)
[2021-03-18] MEDS ORDERED: Dextrose 50% Abboject 50 ML SYRINGE SLOW IVP PRN (17:39)
[2021-03-18] MEDS ORDERED: HumaLOG 300 UNITS/3 ML VIAL SC PRN ×2 (17:39)
[2021-03-18] MEDS ORDERED: Dextrose 5% in Water 1,000 ML IV PRN (17:39)
[2021-03-18] MEDS: Donepezil HCl 5 MG TAB PO SCH (22:22)
[2021-03-18] MEDS: Heparin 5,000 UNITS/ML VIAL SC SCH (22:22)
[2021-03-18] MEDS: Mirtazapine 15 MG Soltab PO SCH (22:22)
[2021-03-19] MEDS ORDERED: PARoxetine 20 MG TAB ONE (01:19)
[2021-03-19 08:11] LABS: #Basophils 0.1 thou/uL (0.0-0.2); #Eosinphils 0.1 thou/uL (0.0-0.7); #Monocytes 1.2 thou/uL (0.11-0.59); %Eosinophils 1.4 % (0.0-10.0); %Lymphocytes 38.2 % (21.0-51.0); %Monocytes 11.4 % (0.0-10.0); Hemoglobin 11.1 g/dL (12.0-16.0); Mean Corpuscular HGB CONC 32.2 g/dL (32.0-36.0); Mean Corpuscular Hemoglobin 26.4 pg (27.0-31.0); Mean Corpuscular Volume 82.2 fL (78.0-98.0); Mean Platelet Volume 8.3 fL (7.4-10.4); Platelet Count 343 thou/uL (130-400); RBC Distribution Width 19.6 % (11.5-14.5); Red Blood Cell (RBC) Count 4.19 mill/uL (4.20-5.40); White Blood Cell (WBC) Count 10.4 thou/uL (4.8-10.8)
[2021-03-19] MEDS: Oxybutynin 5 MG TAB PO SCH ×2 (08:27→20:04)
[2021-03-19] MEDS: Aspirin Chewable 81 MG TAB PO SCH (08:27)
[2021-03-19] MEDS: Folic Acid 1 MG TAB PO SCH (08:28)
[2021-03-19 08:36] LABS: ALT (SGPT) 21 U/L (8-55); AST (SGOT) 42 U/L (5-34); Albumin 3.6 g/dL (3.4-4.8); Alkaline Phosphatase 67 U/L (40-110); Anion Gap 20 mmol/L (10-20); BUN (Urea Nitrogen) 44 mg/dL (9.8-20.1); Bilirubin, Total 0.3 mg/dL (0.2-1.2); Calc. Creatinine Clearance 6 mL/min (70-130); Carbon Dioxide 33 mmol/L (23-31); Chloride 88 mmol/L (98-107); Globulin 2.9 g/dL (2.4-3.5); Glucose 115 mg/dL (83-110); Potassium 5.3 mmol/L (3.5-5.1); Protein, Total 6.5 g/dL (5.8-8.1); Sodium 136 mmol/L (136-145)
[2021-03-19] MEDS: Sodium Chloride 0.9% 1,000 ML IV SCH ×2 (08:42→20:05)
[2021-03-19] MEDS: Heparin 5,000 UNITS/ML VIAL SC SCH ×2 (08:52→20:04)
[2021-03-19] MEDS: Mirtazapine 15 MG Soltab PO SCH (20:04)
[2021-03-19] MEDS: Donepezil HCl 5 MG TAB PO SCH (20:04)
[2021-03-20] MEDS: Aspirin Chewable 81 MG TAB PO SCH (09:01)
[2021-03-20] MEDS: Oxybutynin 5 MG TAB PO SCH ×2 (09:01→22:39)
[2021-03-20] MEDS: Folic Acid 1 MG TAB PO SCH (09:01)
[2021-03-20] MEDS: Heparin 5,000 UNITS/ML VIAL SC SCH ×3 (09:01→22:40)
[2021-03-20] MEDS: Sodium Chloride 0.9% 1,000 ML IV SCH (11:10)
[2021-03-20] MEDS: Donepezil HCl 5 MG TAB PO SCH (22:39)
[2021-03-20] MEDS: Mirtazapine 15 MG Soltab PO SCH (22:40)
[2021-03-21] MEDS: Sodium Chloride 0.9% 1,000 ML IV SCH ×2 (02:34→08:55)
[2021-03-21 06:12] LABS: Anion Gap 15 mmol/L (10-20); BUN (Urea Nitrogen) 37 mg/dL (9.8-20.1); Calc. Creatinine Clearance 9 mL/min (70-130); Carbon Dioxide 24 mmol/L (23-31); Chloride 102 mmol/L (98-107); Glucose 89 mg/dL (83-110); Potassium 4.2 mmol/L (3.5-5.1); Sodium 137 mmol/L (136-145)
[2021-03-21] MEDS: Oxybutynin 5 MG TAB PO SCH ×2 (08:51→21:55)
[2021-03-21] MEDS: Folic Acid 1 MG TAB PO SCH (08:51)
[2021-03-21] MEDS: Heparin 5,000 UNITS/ML VIAL SC SCH ×2 (08:52→21:55)
[2021-03-21] MEDS: Aspirin Chewable 81 MG TAB PO SCH (08:54)
[2021-03-21] MEDS: Donepezil HCl 5 MG TAB PO SCH (21:55)
[2021-03-21] MEDS: Mirtazapine 15 MG Soltab PO SCH (21:55)
[2021-03-22] MEDS: Sodium Chloride 0.9% 1,000 ML IV SCH ×2 (01:40→21:53)
[2021-03-22 05:39] LABS: Anion Gap 17 mmol/L (10-20); BUN (Urea Nitrogen) 33 mg/dL (9.8-20.1); Calc. Creatinine Clearance 10 mL/min (70-130); Calcium 8.6 mg/dL (7.8-10.44); Carbon Dioxide 20 mmol/L (23-31); Chloride 107 mmol/L (98-107); Glucose 119 mg/dL (83-110); Potassium 4.7 mmol/L (3.5-5.1); Sodium 139 mmol/L (136-145)
[2021-03-22] MEDS: Aspirin Chewable 81 MG TAB PO SCH (08:31)
[2021-03-22] MEDS: Oxybutynin 5 MG TAB PO SCH ×2 (08:31→21:03)
[2021-03-22] MEDS: Heparin 5,000 UNITS/ML VIAL SC SCH ×2 (08:31→21:03)
[2021-03-22] MEDS: Folic Acid 1 MG TAB PO SCH (08:31)
[2021-03-22] MEDS: Diphenoxylate HCl/Atropine Tablet PO SCH ×2 (15:27→21:02)
[2021-03-22] MEDS: Loperamide HCl 2 MG CAP PO SCH ×2 (15:28→21:02)
[2021-03-22] MEDS: Mirtazapine 15 MG Soltab PO SCH (21:02)
[2021-03-22] MEDS: Donepezil HCl 5 MG TAB PO SCH (21:03)
[2021-03-23] MEDS ORDERED: HYDROcodone/Acetaminophen 5/325 mg Tablet PO PRN (08:42)
[2021-03-23] MEDS ORDERED: Hydrocerin (Eucerin) Cream 120 gm Jar TOP PRN (08:42)
[2021-03-23] MEDS ORDERED: Calcium Carbonate 500 MG ChewTAB PO PRN (08:42)
[2021-03-23] MEDS ORDERED: Artificial Tear Sol 15 ML BOT EA EYE PRN (08:42)
[2021-03-23] MEDS ORDERED: Loratadine 10 MG TAB PO PRN (08:42)
[2021-03-23] MEDS ORDERED: Cepastat Lozenges 1 LOZ PO PRN (08:42)
[2021-03-23] MEDS ORDERED: hydrALAZINE 20 MG/ML VIAL SLOW IVP PRN (08:42)
[2021-03-23] MEDS ORDERED: GUAIFENESIN SF SOLN 200 MG/10 ML UDCUP PO PRN (08:42)
[2021-03-23] MEDS ORDERED: Sodium Chloride 0.65% Nasal 44 ML BOT EA NARE PRN (08:42)
[2021-03-23] MEDS: Diphenoxylate HCl/Atropine Tablet PO SCH ×3 (10:06→20:44)
[2021-03-23] MEDS: Sodium Bicarbonate Tab 325 MG TAB PO SCH ×3 (10:07→20:43)
[2021-03-23] MEDS: Oxybutynin 5 MG TAB PO SCH ×2 (10:07→20:43)
[2021-03-23] MEDS: Loperamide HCl 2 MG CAP PO SCH ×3 (10:07→20:44)
[2021-03-23] MEDS: Aspirin Chewable 81 MG TAB PO SCH (10:07)
[2021-03-23] MEDS: Folic Acid 1 MG TAB PO SCH (10:07)
[2021-03-23] MEDS: Nystatin Powder 15 GM BOT TOP SCH ×2 (10:08→20:45)
[2021-03-23] MEDS: Heparin 5,000 UNITS/ML VIAL SC SCH ×2 (10:09→20:47)
[2021-03-23 10:18] LABS: Anion Gap 13 mmol/L (10-20); BUN (Urea Nitrogen) 36 mg/dL (9.8-20.1); Calc. Creatinine Clearance 11 mL/min (70-130); Carbon Dioxide 20 mmol/L (23-31); Chloride 108 mmol/L (98-107); Glucose 152 mg/dL (83-110); Potassium 4.7 mmol/L (3.5-5.1); Sodium 136 mmol/L (136-145)
[2021-03-23] MEDS: Sodium Chloride 0.9% 1,000 ML IV SCH (18:00)
[2021-03-23] MEDS: Mirtazapine 15 MG Soltab PO SCH (20:44)
[2021-03-23] MEDS: Donepezil HCl 5 MG TAB PO SCH (20:44)
[2021-03-24 04:47] LABS: #Eosinphils 0.3 thou/uL (0.0-0.7); #Monocytes 0.6 thou/uL (0.11-0.59); #Neutrophils 5.5 thou/uL (1.40-6.50); %Basophils 0.4 % (0.0-1.0); %Eosinophils 3.5 % (0.0-10.0); %Lymphocytes 31.3 % (21.0-51.0); %Monocytes 6.7 % (0.0-10.0); %Neutrophils 58.1 % (42.0-75.0); Hemoglobin 8.8 g/dL (12.0-16.0); Mean Corpuscular HGB CONC 31.1 g/dL (32.0-36.0); Mean Corpuscular Hemoglobin 26.4 pg (27.0-31.0); Mean Corpuscular Volume 84.7 fL (78.0-98.0); Mean Platelet Volume 8.6 fL (7.4-10.4); Platelet Count 274 thou/uL (130-400); RBC Distribution Width 19.8 % (11.5-14.5); Red Blood Cell (RBC) Count 3.34 mill/uL (4.20-5.40); White Blood Cell (WBC) Count 9.4 thou/uL (4.8-10.8)
[2021-03-24 05:16] LABS: ALT (SGPT) 10 U/L (8-55); AST (SGOT) 16 U/L (5-34); Albumin 2.9 g/dL (3.4-4.8); Alkaline Phosphatase 58 U/L (40-110); Anion Gap 12 mmol/L (10-20); BUN (Urea Nitrogen) 39 mg/dL (9.8-20.1); Bilirubin, Total 0.2 mg/dL (0.2-1.2); Calc. Creatinine Clearance 11 mL/min (70-130); Calcium 8.4 mg/dL (7.8-10.44); Carbon Dioxide 20 mmol/L (23-31); Chloride 111 mmol/L (98-107); Globulin 2.2 g/dL (2.4-3.5); Glucose 96 mg/dL (83-110); Magnesium 1.5 mg/dL (1.6-2.6); Phosphorus 4.3 mg/dL (2.3-4.7); Potassium 5.2 mmol/L (3.5-5.1); Protein, Total 5.1 g/dL (5.8-8.1); Sodium 138 mmol/L (136-145)
[2021-03-24] MEDS ORDERED: Magnesium Oxide 400 MG TAB PO SCH (06:15)
[2021-03-24] MEDS ORDERED: Magnesium 2 GM/50 ML 2 GM in Premix Bag 1 BAG IVPB SCH (07:30)
[2021-03-24] MEDS: Sodium Bicarbonate Tab 325 MG TAB PO SCH ×3 (09:39→21:48)
[2021-03-24] MEDS: Diphenoxylate HCl/Atropine Tablet PO SCH ×3 (09:39→21:48)
[2021-03-24] MEDS: Aspirin Chewable 81 MG TAB PO SCH (09:39)
[2021-03-24] MEDS: Folic Acid 1 MG TAB PO SCH (09:39)
[2021-03-24] MEDS: Loperamide HCl 2 MG CAP PO SCH (09:39)
[2021-03-24] MEDS: Oxybutynin 5 MG TAB PO SCH ×2 (09:39→21:48)
[2021-03-24] MEDS: Nystatin Powder 15 GM BOT TOP SCH ×2 (09:40→22:45)
[2021-03-24] MEDS: Heparin 5,000 UNITS/ML VIAL SC SCH ×2 (09:56→21:44)
[2021-03-24 11:42] LABS: Anion Gap 16 mmol/L (10-20); BUN (Urea Nitrogen) 36 mg/dL (9.8-20.1); Calc. Creatinine Clearance 12 mL/min (70-130); Calcium 8.3 mg/dL (7.8-10.44); Carbon Dioxide 18 mmol/L (23-31); Chloride 109 mmol/L (98-107); Glucose 114 mg/dL (83-110); Sodium 138 mmol/L (136-145)
[2021-03-24 14:10] VITALS: BMI 14.1
[2021-03-24] MEDS: Sodium Chloride 0.9% 1,000 ML IV SCH (16:25)
[2021-03-24] MEDS: Mirtazapine 15 MG Soltab PO SCH (21:48)
[2021-03-24] MEDS: Donepezil HCl 5 MG TAB PO SCH (21:48)
[2021-03-25] MEDS: Nystatin Powder 15 GM BOT TOP SCH ×3 (04:08→21:23)
[2021-03-25] MEDS: Oxybutynin 5 MG TAB PO SCH ×2 (08:44→21:21)
[2021-03-25] MEDS: Diphenoxylate HCl/Atropine Tablet PO SCH ×3 (08:44→21:20)
[2021-03-25] MEDS: Aspirin Chewable 81 MG TAB PO SCH (08:44)
[2021-03-25] MEDS: Folic Acid 1 MG TAB PO SCH (08:44)
[2021-03-25] MEDS: Sodium Bicarbonate Tab 325 MG TAB PO SCH ×3 (08:45→21:20)
[2021-03-25] MEDS: Heparin 5,000 UNITS/ML VIAL SC SCH ×3 (08:45→21:34)
[2021-03-25 09:19] LABS: #Basophils 0.1 thou/uL (0.0-0.2); #Eosinphils 0.3 thou/uL (0.0-0.7); #Lymphocytes 2.1 thou/uL (1.20-3.40); #Monocytes 0.6 thou/uL (0.11-0.59); #Neutrophils 5.2 thou/uL (1.40-6.50); %Basophils 0.7 % (0.0-1.0); %Eosinophils 3.7 % (0.0-10.0); %Lymphocytes 25.6 % (21.0-51.0); Hemoglobin 8.9 g/dL (12.0-16.0); Mean Corpuscular HGB CONC 31.2 g/dL (32.0-36.0); Mean Corpuscular Hemoglobin 26.6 pg (27.0-31.0); Mean Corpuscular Volume 85.4 fL (78.0-98.0); Mean Platelet Volume 8.4 fL (7.4-10.4); Platelet Count 280 thou/uL (130-400); RBC Distribution Width 20.1 % (11.5-14.5); Red Blood Cell (RBC) Count 3.34 mill/uL (4.20-5.40); White Blood Cell (WBC) Count 8.3 thou/uL (4.8-10.8)
[2021-03-25 09:38] LABS: Anion Gap 13 mmol/L (10-20); BUN (Urea Nitrogen) 31 mg/dL (9.8-20.1); Calc. Creatinine Clearance 13 mL/min (70-130); Calcium 8.4 mg/dL (7.8-10.44); Carbon Dioxide 20 mmol/L (23-31); Chloride 111 mmol/L (98-107); Glucose 132 mg/dL (83-110); Potassium 5.2 mmol/L (3.5-5.1); Sodium 139 mmol/L (136-145)
[2021-03-25] MEDS ORDERED: Sodium Chloride 0.9% 1,000 ML IV SCH (10:30)
[2021-03-25] MEDS: Sodium Chloride 0.45% 1,000 ML IV SCH (11:20)
[2021-03-25] MEDS: Donepezil HCl 5 MG TAB PO SCH (21:20)
[2021-03-25] MEDS: Mirtazapine 15 MG Soltab PO SCH (21:23)
[2021-03-26] MEDS: Sodium Chloride 0.45% 1,000 ML IV SCH ×2 (00:36→13:08)
[2021-03-26 06:55] LABS: #Eosinphils 0.3 thou/uL (0.0-0.7); #Lymphocytes 1.8 thou/uL (1.20-3.40); #Monocytes 0.6 thou/uL (0.11-0.59); #Neutrophils 3.9 thou/uL (1.40-6.50); %Basophils 0.7 % (0.0-1.0); %Lymphocytes 26.5 % (21.0-51.0); %Monocytes 9.7 % (0.0-10.0); %Neutrophils 58.1 % (42.0-75.0); Hemoglobin 8.2 g/dL (12.0-16.0); Mean Corpuscular HGB CONC 32.4 g/dL (32.0-36.0); Mean Corpuscular Hemoglobin 27.1 pg (27.0-31.0); Mean Corpuscular Volume 83.8 fL (78.0-98.0); Mean Platelet Volume 8.4 fL (7.4-10.4); Platelet Count 266 thou/uL (130-400); Red Blood Cell (RBC) Count 3.01 mill/uL (4.20-5.40); White Blood Cell (WBC) Count 6.6 thou/uL (4.8-10.8)
[2021-03-26 07:04] LABS: Anion Gap 11 mmol/L (10-20); BUN (Urea Nitrogen) 30 mg/dL (9.8-20.1); Calc. Creatinine Clearance 15 mL/min (70-130); Calcium 8.2 mg/dL (7.8-10.44); Carbon Dioxide 20 mmol/L (23-31); Chloride 108 mmol/L (98-107); Glucose 82 mg/dL (83-110); Potassium 4.9 mmol/L (3.5-5.1); Sodium 134 mmol/L (136-145)
[2021-03-26] MEDS: Diphenoxylate HCl/Atropine Tablet PO SCH ×3 (08:22→22:08)
[2021-03-26] MEDS: Sodium Bicarbonate Tab 325 MG TAB PO SCH ×3 (08:23→22:08)
[2021-03-26] MEDS: Heparin 5,000 UNITS/ML VIAL SC SCH ×2 (08:23→22:04)
[2021-03-26] MEDS: Oxybutynin 5 MG TAB PO SCH ×2 (08:23→22:08)
[2021-03-26] MEDS: Aspirin Chewable 81 MG TAB PO SCH (08:23)
[2021-03-26] MEDS: Folic Acid 1 MG TAB PO SCH (08:27)
[2021-03-26] MEDS: Nystatin Powder 15 GM BOT TOP SCH ×2 (09:02→22:09)
[2021-03-26] MEDS: Donepezil HCl 5 MG TAB PO SCH (22:08)
[2021-03-26] MEDS: Mirtazapine 15 MG Soltab PO SCH (22:43)
[2021-03-27 07:03] LABS: Anion Gap 12 mmol/L (10-20); BUN (Urea Nitrogen) 29 mg/dL (9.8-20.1); Calc. Creatinine Clearance 15 mL/min (70-130); Calcium 8.4 mg/dL (7.8-10.44); Carbon Dioxide 20 mmol/L (23-31); Chloride 105 mmol/L (98-107); Glucose 78 mg/dL (83-110); Magnesium 1.3 mg/dL (1.6-2.6); Potassium 5.1 mmol/L (3.5-5.1); Sodium 132 mmol/L (136-145)
[2021-03-27] MEDS: Diphenoxylate HCl/Atropine Tablet PO SCH ×3 (08:37→21:10)
[2021-03-27] MEDS: Aspirin Chewable 81 MG TAB PO SCH (08:37)
[2021-03-27] MEDS: Oxybutynin 5 MG TAB PO SCH ×2 (08:37→21:10)
[2021-03-27] MEDS: Folic Acid 1 MG TAB PO SCH (08:37)
[2021-03-27] MEDS: Heparin 5,000 UNITS/ML VIAL SC SCH ×2 (08:37→21:10)
[2021-03-27] MEDS: Sodium Bicarbonate Tab 325 MG TAB PO SCH ×3 (08:37→21:10)
[2021-03-27] MEDS: Sodium Chloride 0.45% 1,000 ML IV SCH (08:39)
[2021-03-27] MEDS ORDERED: Magnesium Sulfate 3 GM in Sodium Chloride 0.9% 100 ML IVPB SCH (10:00)
[2021-03-27] MEDS: Dextrose 5 %-0.45 % NaCl 1,000 ML IV SCH (10:00)
[2021-03-27] MEDS: Nystatin Powder 15 GM BOT TOP SCH ×2 (10:05→21:13)
[2021-03-27] MEDS ORDERED: Aspirin 325 MG TAB PO SCH (11:15)
[2021-03-27] MEDS ORDERED: EPOETIN ALFA-EPBX (ESRD) 10,000 UNIT/ML VIAL SC SCH (15:30)
[2021-03-27 16:00] LABS: Troponin I 0.104 ng/mL (< 0.028)
[2021-03-27 19:35] LABS: Troponin I 0.095 ng/mL (< 0.028)
[2021-03-27] MEDS: Mirtazapine 15 MG Soltab PO SCH (21:10)
[2021-03-27] MEDS: Donepezil HCl 5 MG TAB PO SCH (21:10)
[2021-03-27] MEDS: Ondansetron ODT 4 MG TAB PO PRN (21:15)
[2021-03-28] MEDS: Dextrose 5 %-0.45 % NaCl 1,000 ML IV SCH ×2 (01:39→12:48)
[2021-03-28] MEDS: Aspirin Chewable 81 MG TAB PO SCH (08:23)
[2021-03-28] MEDS: Folic Acid 1 MG TAB PO SCH (08:23)
[2021-03-28] MEDS: Heparin 5,000 UNITS/ML VIAL SC SCH (08:23)
[2021-03-28] MEDS: Nystatin Powder 15 GM BOT TOP SCH (08:23)
[2021-03-28] MEDS: Diphenoxylate HCl/Atropine Tablet PO SCH ×2 (08:23→14:49)
[2021-03-28] MEDS: Sodium Bicarbonate Tab 325 MG TAB PO SCH ×2 (08:23→14:49)
[2021-03-28] MEDS: Oxybutynin 5 MG TAB PO SCH (08:23)
[2021-03-28] MEDS: Ondansetron ODT 4 MG TAB PO PRN (08:26)
[2021-03-28 09:08] VITALS: BP 119/64; TEMP 97.3
[2021-03-28 10:45] LABS: Band 1 % (5-11); Eosinophils 1 % (0-10); Hemoglobin 8.7 g/dL (12.0-16.0); Lymphocytes 43 % (21-51); MDiff Complete? YES; Mean Corpuscular HGB CONC 32.3 g/dL (32.0-36.0); Mean Corpuscular Hemoglobin 27.4 pg (27.0-31.0); Mean Corpuscular Volume 84.8 fL (78.0-98.0); Mean Platelet Volume 8.6 fL (7.4-10.4); Monocytes 10 % (0-10); Myelocyte 1 % (0-0); Neutrophil 44 % (42-75); Platelet Count 261 thou/uL (130-400); Platelet Morphology Comment Appears Adequate; Polychromasia SLIGHT = 2-3 cells (100X) (0-2/hpf); RBC Distribution Width 20.2 % (11.5-14.5); Red Blood Cell (RBC) Count 3.18 mill/uL (4.20-5.40); White Blood Cell (WBC) Count 5.3 thou/uL (4.8-10.8)
[2021-03-28 11:18] LABS: Anion Gap 14 mmol/L (10-20); BUN (Urea Nitrogen) 29 mg/dL (9.8-20.1); Calc. Creatinine Clearance 14 mL/min (70-130); Carbon Dioxide 19 mmol/L (23-31); Chloride 104 mmol/L (98-107); Glucose 122 mg/dL (83-110); Magnesium 2.2 mg/dL (1.6-2.6); Potassium 6.2 mmol/L (3.5-5.1); Sodium 131 mmol/L (136-145)
== END 2021-03-28 16:58 | disposition home health service (06) | DRG 280 ==
LOC: ERS 06:51 → ERHOLD 10:02 → 2NO 14:34 → T4-A 03-25 10:27
PROVIDERS: ADMIT Family Medicine; ATTEND Internal Medicine
DX: R55 Syncope and collapse (principal); E43 Unspecified severe protein-calorie malnutrition; I21.A1 Myocardial infarction type 2; Z68.1 Body mass index [BMI] 19.9 or less, adult; E87.2 Acidosis; E87.1 Hypo-osmolality and hyponatremia; N17.9 Acute kidney failure, unspecified; N18.4 Chronic kidney disease, stage 4 (severe); K94.03 Colostomy malfunction; Z66 Do not resuscitate; Z20.822 Contact with and (suspected) exposure to COVID-19; E11.22 Type 2 diabetes mellitus with diabetic chronic kidney disease; G40.909 Epilepsy, unspecified, not intractable, without status epilepticus; E78.5 Hyperlipidemia, unspecified; D63.1 Anemia in chronic kidney disease; G93.89 Other specified disorders of brain; E87.5 Hyperkalemia; E83.42 Hypomagnesemia; E88.09 Other disorders of plasma-protein metabolism, not elsewhere classified; I25.10 Atherosclerotic heart disease of native coronary artery without angina pectoris; F03.90 Unspecified dementia, unspecified severity, without behavioral disturbance, psychotic disturbance, mood disturbance, and anxiety; N32.81 Overactive bladder; E11.69 Type 2 diabetes mellitus with other specified complication; F32.A Depression, unspecified; I95.9 Hypotension, unspecified; Z79.899 Other long term (current) drug therapy
CPT/HCPCS: 36415; 36416; 70450; 71045; 71275; 80048; 80053; 82550; 82553; 82805; 83735; 84100; 84145; 84146; 84484; 85025; 85379; 87040; 93005; 93010; 93306; 95816; 95819; 95957; J0610; J1644; J1650; J1815; J2060; J3475; J3490; J7042; J7050; J7070; Q0162; Q5105; Q9967

== ENCOUNTER 2021-04-07 15:40 | Inpatient (IN) | payer MEDICARE ==
[2021-04-07 16:35] LABS: #Basophils 0.1 thou/uL (0.0-0.2); #Lymphocytes 2.2 thou/uL (1.20-3.40); #Monocytes 0.6 thou/uL (0.11-0.59); #Neutrophils 4.3 thou/uL (1.40-6.50); %Basophils 0.8 % (0.0-1.0); %Eosinophils 0.5 % (0.0-10.0); %Lymphocytes 30.3 % (21.0-51.0); %Monocytes 8.3 % (0.0-10.0); %Neutrophils 60.1 % (42.0-75.0); Hemoglobin 12.1 g/dL (12.0-16.0); Mean Corpuscular HGB CONC 32.5 g/dL (32.0-36.0); Mean Corpuscular Hemoglobin 27.4 pg (27.0-31.0); Mean Corpuscular Volume 84.3 fL (78.0-98.0); Mean Platelet Volume 7.2 fL (7.4-10.4); Platelet Count 495 thou/uL (130-400); RBC Distribution Width 20.5 % (11.5-14.5); Red Blood Cell (RBC) Count 4.41 mill/uL (4.20-5.40); White Blood Cell (WBC) Count 7.1 thou/uL (4.8-10.8)
[2021-04-07 16:42] LABS: Actual Bicarbonate (HCO3v) 18 mEq/L (22-28); Analyzer IN Cardio ER; Base Excess -8.4 mEq/L (-2.0 to +3.0); Calcium, Ionized (venous) 1.18 mmol/L (1.16-1.32); Chloride (VBG) 92 mmol/L (98-106); Hemoglobin (Hb) 12.2 g/dL (11.7-16.1); Potassium (VBG) 5.41 mmol/L (3.70-5.30); Sodium 126.4 mmol/L (133-146); pH (venous) 7.25 (7.32-7.43)
[2021-04-07 17:00] LABS: ALT (SGPT) 14 U/L (8-55); AST (SGOT) 16 U/L (5-34); Albumin 4.5 g/dL (3.4-4.8); Alkaline Phosphatase 74 U/L (40-110); Anion Gap 22 mmol/L (10-20); BUN (Urea Nitrogen) 64 mg/dL (9.8-20.1); Bilirubin, Total 0.6 mg/dL (0.2-1.2); Calc. Creatinine Clearance 0 mL/min (70-130); Calcium 9.8 mg/dL (7.8-10.44); Carbon Dioxide 18 mmol/L (23-31); Chloride 93 mmol/L (98-107); Glucose 165 mg/dL (83-110); Magnesium 1.9 mg/dL (1.6-2.6); Potassium 5.5 mmol/L (3.5-5.1); Protein, Total 8.5 g/dL (5.8-8.1); Sodium 127 mmol/L (136-145)
[2021-04-07] MEDS ORDERED: cefTRIAXone\\ROCEPHIN 1 GM VIAL ONE (18:21)
[2021-04-07] MEDS ORDERED: Sodium Bicarb 50 MEQ/50 ML Abboject 8.4% SYRINGE ONE (18:23)
[2021-04-07 18:25] LABS: Bacteria/HPF 4+ HPF (None Seen); Bilirubin Negative (Negative); Blood, Urine 1+ (Negative); Glucose, Urine (Dipstick) Normal (Negative); Ketone, Urine Negative (Negative); Leukocyte 500 Leu/uL (Negative); Nitrite Negative (Negative); Protein, Urine (Dipstick) 100 mg/dL (Neg-Trace); Squamous Epithelial None Seen HPF (0-3); Urobilinogen Normal mg/dL (Less than 2); WBC/HPF Greater than 50 HPF (0-3); pH, Urine 5.5 (5.0-9.0)
[2021-04-07 18:28] LABS: Clarity Turbid (Clear)
[2021-04-07] MEDS ORDERED: Lorazepam 2 MG/ML VIAL ONE (18:42)
[2021-04-07] MEDS ORDERED: Sodium Bicarbonate 150 MEQ in Dextrose 5% in Water 1,000 ML IV SCH (19:00)
[2021-04-07] MEDS ORDERED: Sodium Bicarb 50 MEQ/50 ML Abboject 8.4% SYRINGE IVP SCH (19:15)
[2021-04-07 20:19] LABS: Lactic Acid 6.6 mmol/L (0.5-2.2)
[2021-04-07] MEDS ORDERED: Ondansetron ODT 4 MG TAB PO PRN (20:56)
[2021-04-07] MEDS ORDERED: Senokot S 8.6-50 MG TAB PO PRN (20:56)
[2021-04-07] MEDS ORDERED: Ondansetron PF 4 MG/2 ML Vial IVP PRN (20:56)
[2021-04-07] MEDS ORDERED: Acetaminophen 650 MG Suppository PR PRN (20:56)
[2021-04-07 22:22] LABS: Anion Gap 19 mmol/L (10-20); BUN (Urea Nitrogen) 56 mg/dL (9.8-20.1); Calc. Creatinine Clearance 0 mL/min (70-130); Calcium 8.4 mg/dL (7.8-10.44); Carbon Dioxide 25 mmol/L (23-31); Chloride 93 mmol/L (98-107); Glucose 179 mg/dL (83-110); Potassium 4.5 mmol/L (3.5-5.1); Sodium 132 mmol/L (136-145)
[2021-04-07] MEDS ORDERED: Insulin Regular 300 UNITS/3 ML VIAL SC PRN (23:19)
[2021-04-07] MEDS ORDERED: HumaLOG 300 UNITS/3 ML VIAL SC PRN (23:19)
[2021-04-07] MEDS ORDERED: Dextrose 5% in Water 1,000 ML IV PRN (23:19)
[2021-04-07] MEDS ORDERED: Dextrose 50% Abboject 50 ML SYRINGE SLOW IVP PRN (23:19)
[2021-04-08 01:06] LABS: Lactic Acid 3.4 mmol/L (0.5-2.2)
[2021-04-08] MEDS: cefTRIAXone\\ROCEPHIN 1 GM in Sodium Chloride 0.9% 100 ML IVPB SCH ×2 (01:47→23:35)
[2021-04-08] MEDS: Sodium Bicarbonate 150 MEQ in Dextrose 5% in Water 1,000 ML IV SCH ×2 (05:59→16:51)
[2021-04-08 08:10] LABS: #Basophils 0.1 thou/uL (0.0-0.2); #Monocytes 0.6 thou/uL (0.11-0.59); #Neutrophils 3.3 thou/uL (1.40-6.50); %Basophils 0.9 % (0.0-1.0); %Eosinophils 0.3 % (0.0-10.0); %Lymphocytes 33.8 % (21.0-51.0); %Monocytes 9.5 % (0.0-10.0); %Neutrophils 55.5 % (42.0-75.0); Hemoglobin 10.4 g/dL (12.0-16.0); Mean Corpuscular HGB CONC 32.4 g/dL (32.0-36.0); Mean Corpuscular Hemoglobin 27.2 pg (27.0-31.0); Mean Corpuscular Volume 83.9 fL (78.0-98.0); Mean Platelet Volume 7.1 fL (7.4-10.4); Platelet Count 398 thou/uL (130-400); RBC Distribution Width 20.3 % (11.5-14.5); Red Blood Cell (RBC) Count 3.82 mill/uL (4.20-5.40); White Blood Cell (WBC) Count 5.9 thou/uL (4.8-10.8)
[2021-04-08 08:13] LABS: Hemoglobin A1c 6.2 % (4.0-6.0)
[2021-04-08 08:26] LABS: BUN (Urea Nitrogen) 51 mg/dL (9.8-20.1); Calc. Creatinine Clearance 20 mL/min (70-130)
[2021-04-08 08:27] LABS: Calcium 9.2 mg/dL (7.8-10.44); Glucose 134 mg/dL (83-110)
[2021-04-08 08:36] LABS: Anion Gap 21 mmol/L (10-20); Carbon Dioxide 35 mmol/L (23-31); Chloride 89 mmol/L (98-107); Potassium 4.8 mmol/L (3.5-5.1); Sodium 140 mmol/L (136-145)
[2021-04-08] MEDS: Aspirin Chewable 81 MG TAB PO SCH (09:05)
[2021-04-08] MEDS: Oxybutynin 5 MG TAB PO SCH ×2 (09:05→22:25)
[2021-04-08] MEDS: Cholestyramine/Aspartame 4 gm Packet PO SCH ×2 (09:05→16:51)
[2021-04-08] MEDS: Famotidine 20 MG TAB PO SCH (09:05)
[2021-04-08] MEDS: Folic Acid 1 MG TAB PO SCH (09:05)
[2021-04-08] MEDS: Acetaminophen 325 MG TAB PO PRN ×2 (11:24→16:51)
[2021-04-08 12:12] LABS: SARS-CoV-2 PCR by NAA Not Detected (NotDetected)
[2021-04-08] MEDS ORDERED: Donepezil HCl 5 MG TAB PO SCH (21:00)
[2021-04-08] MEDS: Donepezil HCl 5 MG TAB PO SCH (22:25)
[2021-04-08] MEDS: Mirtazapine 15 MG Soltab PO SCH (22:25)
[2021-04-09] MEDS: Sodium Bicarbonate 150 MEQ in Dextrose 5% in Water 1,000 ML IV SCH ×2 (06:19→15:37)
[2021-04-09] MEDS: Famotidine 20 MG TAB PO SCH (08:53)
[2021-04-09] MEDS: Aspirin Chewable 81 MG TAB PO SCH (08:53)
[2021-04-09] MEDS: Cholestyramine/Aspartame 4 gm Packet PO SCH ×2 (08:53→20:08)
[2021-04-09] MEDS: Folic Acid 1 MG TAB PO SCH (08:53)
[2021-04-09] MEDS: Oxybutynin 5 MG TAB PO SCH ×2 (08:53→20:28)
[2021-04-09 14:22] LABS: BUN (Urea Nitrogen) 33 mg/dL (9.8-20.1); Calc. Creatinine Clearance 12 mL/min (70-130); Glucose 121 mg/dL (83-110)
[2021-04-09 14:31] LABS: Anion Gap 17 mmol/L (10-20); Carbon Dioxide 39 mmol/L (23-31); Chloride 77 mmol/L (98-107); Potassium 3.3 mmol/L (3.5-5.1); Sodium 130 mmol/L (136-145)
[2021-04-09] MEDS ORDERED: Potassium Chloride 20 MEQ TAB PO SCH (17:00)
[2021-04-09] MEDS: cefTRIAXone\\ROCEPHIN 1 GM in Sodium Chloride 0.9% 100 ML IVPB SCH (20:06)
[2021-04-09] MEDS: Mirtazapine 15 MG Soltab PO SCH (20:28)
[2021-04-09] MEDS: Donepezil HCl 5 MG TAB PO SCH (20:28)
[2021-04-10 04:21] LABS: #Eosinphils 0.1 thou/uL (0.0-0.7); #Lymphocytes 2.2 thou/uL (1.20-3.40); #Monocytes 0.7 thou/uL (0.11-0.59); #Neutrophils 4.4 thou/uL (1.40-6.50); %Basophils 0.2 % (0.0-1.0); %Eosinophils 0.9 % (0.0-10.0); %Lymphocytes 30.3 % (21.0-51.0); %Monocytes 9.1 % (0.0-10.0); %Neutrophils 59.4 % (42.0-75.0); Hemoglobin 9.6 g/dL (12.0-16.0); Mean Corpuscular HGB CONC 31.8 g/dL (32.0-36.0); Mean Corpuscular Hemoglobin 27.6 pg (27.0-31.0); Mean Corpuscular Volume 86.9 fL (78.0-98.0); Platelet Count 311 thou/uL (130-400); RBC Distribution Width 19.2 % (11.5-14.5); Red Blood Cell (RBC) Count 3.46 mill/uL (4.20-5.40); White Blood Cell (WBC) Count 7.3 thou/uL (4.8-10.8)
[2021-04-10 04:38] LABS: BUN (Urea Nitrogen) 27 mg/dL (9.8-20.1); Calc. Creatinine Clearance 12 mL/min (70-130); Glucose 79 mg/dL (83-110); Magnesium 1.3 mg/dL (1.6-2.6)
[2021-04-10 04:47] LABS: Anion Gap 18 mmol/L (10-20); Carbon Dioxide 35 mmol/L (23-31); Chloride 79 mmol/L (98-107); Potassium 3.4 mmol/L (3.5-5.1); Sodium 129 mmol/L (136-145)
[2021-04-10] MEDS ORDERED: Magnesium Sulfate 4 GM in Sodium Chloride 0.9% 250 ML 250 ML IVPB SCH (07:45)
[2021-04-10] MEDS ORDERED: Potassium Chloride 20 MEQ TAB PO SCH (07:45)
[2021-04-10] MEDS: Cholestyramine/Aspartame 4 gm Packet PO SCH ×3 (10:43→19:50)
[2021-04-10] MEDS: Aspirin Chewable 81 MG TAB PO SCH (10:43)
[2021-04-10] MEDS: Folic Acid 1 MG TAB PO SCH (10:44)
[2021-04-10] MEDS: Oxybutynin 5 MG TAB PO SCH ×2 (10:44→19:37)
[2021-04-10] MEDS: Famotidine 20 MG TAB PO SCH (10:44)
[2021-04-10] MEDS: Donepezil HCl 5 MG TAB PO SCH (19:36)
[2021-04-10] MEDS: cefTRIAXone\\ROCEPHIN 1 GM in Sodium Chloride 0.9% 100 ML IVPB SCH (19:37)
[2021-04-10] MEDS: Mirtazapine 15 MG Soltab PO SCH (19:37)
[2021-04-11 05:12] LABS: #Eosinphils 0.2 thou/uL (0.0-0.7); #Lymphocytes 1.7 thou/uL (1.20-3.40); #Monocytes 0.7 thou/uL (0.11-0.59); %Basophils 0.8 % (0.0-1.0); %Eosinophils 3.1 % (0.0-10.0); %Lymphocytes 30.8 % (21.0-51.0); %Monocytes 11.7 % (0.0-10.0); %Neutrophils 53.6 % (42.0-75.0); Mean Corpuscular HGB CONC 31.3 g/dL (32.0-36.0); Mean Corpuscular Hemoglobin 27.2 pg (27.0-31.0); Mean Corpuscular Volume 86.8 fL (78.0-98.0); Mean Platelet Volume 7.6 fL (7.4-10.4); Platelet Count 298 thou/uL (130-400); Red Blood Cell (RBC) Count 3.69 mill/uL (4.20-5.40); White Blood Cell (WBC) Count 5.5 thou/uL (4.8-10.8)
[2021-04-11 05:46] LABS: Anion Gap 14 mmol/L (10-20); BUN (Urea Nitrogen) 27 mg/dL (9.8-20.1); Calc. Creatinine Clearance 12 mL/min (70-130); Calcium 8.5 mg/dL (7.8-10.44); Carbon Dioxide 32 mmol/L (23-31); Chloride 85 mmol/L (98-107); Glucose 111 mg/dL (83-110); Magnesium 2.8 mg/dL (1.6-2.6); Potassium 3.4 mmol/L (3.5-5.1); Sodium 128 mmol/L (136-145)
[2021-04-11] MEDS ORDERED: Potassium Chloride 20 MEQ in Premix Bag 1 BAG IVPB SCH ×2 (08:00→08:15)
[2021-04-11] MEDS: Aspirin Chewable 81 MG TAB PO SCH (08:43)
[2021-04-11] MEDS: Famotidine 20 MG TAB PO SCH (08:43)
[2021-04-11] MEDS: Cholestyramine/Aspartame 4 gm Packet PO SCH ×4 (08:43→22:29)
[2021-04-11] MEDS: Folic Acid 1 MG TAB PO SCH (08:43)
[2021-04-11] MEDS: Oxybutynin 5 MG TAB PO SCH ×3 (08:43→22:29)
[2021-04-11] MEDS: Donepezil HCl 5 MG TAB PO SCH ×2 (21:12→22:28)
[2021-04-11] MEDS: Mirtazapine 15 MG Soltab PO SCH ×2 (21:12→22:29)
[2021-04-12] MEDS: Aspirin Chewable 81 MG TAB PO SCH (08:39)
[2021-04-12] MEDS: Oxybutynin 5 MG TAB PO SCH (08:39)
[2021-04-12] MEDS: Famotidine 20 MG TAB PO SCH (08:39)
[2021-04-12] MEDS: Cholestyramine/Aspartame 4 gm Packet PO SCH (08:39)
[2021-04-12] MEDS: Folic Acid 1 MG TAB PO SCH (08:39)
[2021-04-12 08:52] VITALS: BP 107/63; TEMP 97.8
[2021-04-12 09:25] VITALS: BMI 16.1
== END 2021-04-12 10:08 | disposition hospice, home (50) | DRG 871 ==
LOC: ERS 15:40 → ERHOLD 20:32 → 2NO 23:19
PROVIDERS: ADMIT Internal Medicine; ATTEND Family Medicine
DX: A41.51 Sepsis due to Escherichia coli [E. coli] (principal); G93.41 Metabolic encephalopathy; E43 Unspecified severe protein-calorie malnutrition; N17.9 Acute kidney failure, unspecified; E87.1 Hypo-osmolality and hyponatremia; N30.00 Acute cystitis without hematuria; Z68.1 Body mass index [BMI] 19.9 or less, adult; N18.4 Chronic kidney disease, stage 4 (severe); Z66 Do not resuscitate; Z51.5 Encounter for palliative care; Z20.822 Contact with and (suspected) exposure to COVID-19; F03.90 Unspecified dementia, unspecified severity, without behavioral disturbance, psychotic disturbance, mood disturbance, and anxiety; E87.5 Hyperkalemia; G40.909 Epilepsy, unspecified, not intractable, without status epilepticus; D69.6 Thrombocytopenia, unspecified; E11.22 Type 2 diabetes mellitus with diabetic chronic kidney disease; D50.9 Iron deficiency anemia, unspecified; E86.0 Dehydration; D63.1 Anemia in chronic kidney disease; I12.9 Hypertensive chronic kidney disease with stage 1 through stage 4 chronic kidney disease, or unspecified chronic kidney disease; R55 Syncope and collapse; I95.9 Hypotension, unspecified; Z90.49 Acquired absence of other specified parts of digestive tract; Z93.2 Ileostomy status; Z79.899 Other long term (current) drug therapy; Z79.82 Long term (current) use of aspirin
CPT/HCPCS: 36415; 36416; 80048; 80053; 81003; 81015; 82010; 82805; 83036; 83605; 83735; 85025; 87077; 87086; 87186; 93005; 96365; 96366; 96367; 96372; 96376; J0696; J2060; J3475; J3480; J3490; J7050; J7070; U0003; U0005